=== PATIENT | female | born 1975 | race Caucasian/White ===

== ENCOUNTER → 2016-09-28 | Outpatient (CLI) | payer OTHER ==
[~2016-09-28] MED LIST: DEXILANT60 MG PO; VENLAFAXINE HC150 M1 PO
--- NOTE | ~2016-09-28 | US6 ---
[facility] A Service of [facility] RADIOLOGY TEXT RESULTS PATIENT: JOSHUA STEVENSON LOCATION: [facility] : 77 UNIT #: [id number] AGE: [address]: Rafael Miller MD SEX: F ORDER DR: [id number] [facility] [address] [place], [place] [address] [id number] O MR#: [id number] Acc #: [id number] NAME: JOSHUA STEVENSON : 1975 SEX: F STUDY DATE/TIME: 09/28/2016 7:46 UNIT: CGUS ROOM: STUDY DESCRIPTION: US Abdominal Limited Attending Physician: Rafael Miller Jr., M.D. Referring Physician: Rafael Miller Jr., M.D. Ordering Physician: Rafael Miller Jr., M.D. Primary Care Physician: Rafael Miller Jr., M.D. MEDICAL IMAGING REPORT This report is preliminary unless electronic signature is present EXAM Right upper quadrant abdominal ultrasound. INDICATIONS Upper quadrant abdominal pain for the past 6 months. PROCEDURE Mckay-scale and Doppler imaging, right upper quadrant of the abdomen. COMPARISON None FINDINGS Pancreas is mostly obscured by bowel gas and not well seen. The liver is also difficult to evaluate, but does show increased and coarsened echotexture. Liver measures 17.9 cm in length. The right kidney measures 11.2 cm. Unremarkable gallbladder. Common duct measures 4 mm. IMPRESSION 1. Increased liver echotexture in keeping with steatosis. 2. Pancreas obscured and not well seen on this study. Dictated by... Billy Mendoza M.D. THIS IS AN ELECTRONICALLY VERIFIED REPORT Billy Mendoza M.D. at 09/29/2016 7:12 AM MARAL/trevor TD: 09/28/2016 16:36 [facility] A Service [facility] RADIOLOGY TEXT RESULTS PATIENT: JOSHUA STEVENSON LOCATION: [facility] : 77 UNIT #: [id number] AGE: [address]: Rafael Miller MD SEX: F ORDER DR: JOB #: [id number] MEDICAL IMAGING REPORT Page 1 of 1 COPY
== END | disposition home or self-care (01) ==
LOC: CGUS 07:11
DX: R10.11 Right upper quadrant pain (principal); K76.0 Fatty (change of) liver, not elsewhere classified
CPT/HCPCS: 76705